=== PATIENT | male | born 2000 | race Native Hawaiian/Other Pacific Islander ===

== ENCOUNTER 2018-04-02 16:00 | Emergency (ER) | payer OTHER ==
[~2018-04-02] VITALS: Ht 167.6 cm; Wt 72.6 kg
[2018-04-02 16:09] VITALS: TEMP 98.4
[2018-04-02 17:11] LABS: PLATELET COUNT 148 K/uL (142-355)
[2018-04-02 17:19] LABS: POTASSIUM 3.7 mmol/L (3.6-5.2)
[2018-04-02 17:35] VITALS: BP 128/74
== END 2018-04-02 17:41 | disposition home or self-care (01) ==
LOC: ED 16:00
DX: K04.7 Periapical abscess without sinus (principal)
CPT/HCPCS: 36415; 80053; 85027; 99283